=== PATIENT | female | born 1965 | race Caucasian/White ===

== ENCOUNTER 2018-09-17 07:19 | Observation (INO) ==
--- NOTE | 2018-09-17 07:22 | Emergency Department Note ---
Disposition Clinical Impression: Chest pain Qualifiers: Chest pain type: unspecified Qualified Code(s): R07.9 - Chest pain, unspecified Disposition: Admitted As Inpatient Condition: Fair Referrals: Joseph Torres DO [Primary Care Provider] - Forms: ED Satisfaction Letter Time of Disposition: 08:57 Chest Pain HPI - General Chief Complaint: ED Chest Pain Stated Complaint: Chest Pain Time Seen by Provider: 09/17/18 07:21 Source: patient, EMS Mode of arrival: EMS Limitations: no limitations Vital Signs Reviewed: Yes Nursing Notes Reviewed: Yes - History of Present Illness HPI Narrative: 52-year-old female who presents today with what she describes as "crushing" chest pain that radiated into her jaw today when she got to work. She states that she took to thrive energy pills this morning before work. She states that she is out of her metoprolol. She states she has had a heart attack before but did not have any angioplasty or stenting and it was taking care of with heparin. She states that since that time she has not had a repeat stress test or catheter and has been approximately 3 years since her last heart attack. She is a smoker. She states her cholesterol is always normal. She is a strong family history of cardiac disease. She states that she does not have diabetes. She states en route by EMS she received aspirin and nitroglycerin and an IV was started with some IV fluids, and she states her chest pain is now 1-2 from an 8. She states it felt similar to her previous heart attack and that is why she came in Pt complaint: chest pain - Related Data Home Medications Medication Instructions Recorded Confirmed Duloxetine HCl [Cymbalta] 90 mg PO DAILY 06/23/15 09/17/18 Metoprolol XL (24 HR) Succ [Toprol 25 mg PO DAILY 06/23/15 09/17/18 XL] Zolpidem [Ambien] 10 mg PO HS 06/23/15 09/17/18 clonazePAM [Klonopin] 1 mg PO DAILY 06/23/15 09/17/18 Quetiapine Fumarate [Seroquel] 25 mg PO HS 02/07/17 Aspirin 81 mg PO DAILY 09/17/18 09/17/18 Previous Rx's Medication Instructions Recorded Ibuprofen [Motrin] 800 mg PO Q8HR PRN #40 tablet 06/22/18 Allergies Allergy/AdvReac Type Severity Reaction Status Date / Time Sulfa (Sulfonamide Allergy Hives Verified 06/22/18 13:44 Antibiotics) Review of Systems: All other systems are negative except as noted/marked Chart generated with voice recognition software Nursing notes reviewed Old records reviewed Chest Pain PMH - Past Medical History Medical history: Reports: non-contributory Surgical history: Reports: non-contributory, hysterectomy Psychiatric history: Reports: anxiety, depression - Social History Smoking Status: Current every day smoker Alcohol use: Reports: none Drug use: Reports: none Physical Exam General: NAD, VSS Head: normocephalic, atraumatic Eyes: EOMI, PERRLA mouth: moist mucous membranes Neck: NO CLA, Supple Chest wall: normal rise, no crepitus, no deformity noted Lungs: moving air well, no distress Heart: RRR, Abd: soft, nontender, BS normal : deferred MSK: strength equal in all four extremities Ext: moves all four extremities, no obvious deformities Skin: cap refill normal, warm, dry neuro : CN2-12 grossly intact, A&Ox3 Psych: normal affect, not anxious Course - Reevaluation(s) Reevaluation #1: The case was turned over to me at change of shift. The labs came back showing a negative troponin and the twelve-lead EKG by my interpretation is completely normal and not indicative of ischemia. I went and talked with the patient. Sounds like her discomfort started about half hour to an hour prior to arrival to the emergency department. She says that her discomfort was pretty much gone when they did a 12-lead EKG so the fact that its normal does not really help us rule out ischemia as the cause of her discomfort. Furthermore the timing would indicate that we cannot rely on the single troponin to rule out ischemia either. The patient's heart score is 3. This due to the fact that her troponin is negative, her story is moderately suspicious, her EKG is normal, her age is 52, and she has 2 clear risk factors which include smoking and family history. Now she reports having had a heart attack a couple years ago but states that when she had the heart catheter there was only a blood clot there and they treated it with blood thinners and did not do any stenting. This does not sound like there is atherosclerotic disease but if we gave her that point as a risk factor that would put her heart pathway score at 4 which is a level of higher risk. Her discomfort certainly may have been triggered by drinking all the energy drinks this morning. But we have to be concerned about the heart. She is claiming that her discomfort is moving up from a 1 to a 3 at this point although she is not having any of the jaw discomfort. I will repeat an EKG now to see if there is any change. If there are dynamic changes on the EKG then she will need to be transferred to [facility]. If the EKG is normal, I still think we need to admit the patient to the hospital for serial enzymes given the heart score and the story and overall presentation. Cardiac discussed this with the patient and she agrees to the plan. We await the EKG. Time: 08:33 Reevaluation #2: Twelve-lead EKG performed at 8:34 AM ordered, reviewed and interpreted by ED physician shows sinus rhythm at a rate of 71. Normal axis. Good hour progression across precordium. No acute ischemic changes. Intervals are within normal limits. Time: 08:35 - Consultations Consultation #1: Dr. Armstrong, hospitalist - I discussed the case with the hospitalist. He is accepted patient for admission to the hospital provided a repeat troponin does not show any increase in troponin. I will order the repeat troponin for 945. I will be 2 hours after the initial. If it is negative and the patient will be admitted to the floor. Time: 08:53 Vital Signs Temperature 97.8 F 09/17/18 07:22 Pulse Rate 81 09/17/18 07:22 Respiratory Rate 18 09/17/18 07:22 Blood Pressure 130/78 09/17/18 07:22 O2 Sat by Pulse Oximetry 98 09/17/18 07:22 Temperature 97.8 F 09/17/18 07:22 Pulse Rate 72 09/17/18 08:13 Respiratory Rate 18 09/17/18 08:13 Blood Pressure 130/51 09/17/18 08:13 O2 Sat by Pulse Oximetry 100 09/17/18 08:13 Oxygen Delivery Oxygen Delivery Room Air Chest Pain - Medical Records Medical records reviewed: Yes I reviewed the patient's medical records. - Lab Data Lab results reviewed: Yes I reviewed the patient's lab results. Result diagrams: 09/17/18 07:45 09/17/18 07:45 Lab Results 11/05/2809/17/18 09/17/18 Range/Units 07:45 07:45 07:45 WBC 7.3 (4.3-11.1) K/mcL RBC 4.44 (3.82-4.97) M/mcL Hgb 13.4 (11.5-15.4) g/dL Hct 40.0 (35.3-44.9) % MCV 90.1 (83.0-100.0) fL MCH 30.2 (28.0-33.3) pg MCHC 33.5 (31.6-35.5) g/dL RDW 13.3 (11.5-14.5) % Plt Count 215 (140-400) K/mcL MPV 10.4 (9.4-12.4) fL Immature Gran % 0.3 (0-4) % Seg Neutrophils % 72.7 % Lymphocytes % 19.8 % Monocytes % 5.1 % Eosinophils % 1.7 % Basophils % 0.4 % Neutrophils # 5.3 (1.6-8.9) K/mcL Lymphocytes # 1.4 (0.6-4.6) K/mcL Monocytes # 0.4 (0.0-1.3) K/mcL Eosinophils # 0.1 (0.0-0.6) K/mcL Basophils # 0.0 (0.0-0.2) K/mcL PT 11.1 (9.4-12.1) Seconds INR 1.0 APTT 35.7 (26.0-36.0) Seconds Sodium 138 (136-145) mEq/L Potassium 3.8 (3.5-5.1) mEq/L Chloride 106 (98-107) mEq/L Carbon Dioxide 26 (23-29) mEq/L BUN 10 (6-20) mg/dL Creatinine 0.66 (0.60-1.20) mg/dL Est GFR ( Amer) > 60 (> 60) Est GFR (Non-Af Amer) > 60 (> 60) BUN/Creatinine Ratio 15 (6-26) Glucose 95 (70-105) mg/dL Calculated Osmolality 285 (280-300) Calcium 8.7 (8.6-10.3) mg/dL Troponin I < 0.03 (< 0.04) ng/mL Urine Color (Yellow) Urine Clarity (Clear) Urine pH (5.0-8.0) pH Units Ur Specific [place] (1.010-1.025) Urine Protein (Neg-Trace) mg/dL Urine Glucose (UA) (Normal) mg/dL Urine Ketones (Negative) mg/dL Urine Blood (Negative) Urine Nitrite (Negative) Urine Bilirubin (Negative) Urine Urobilinogen (Normal) mg/dL Ur Leukocyte Esterase (Negative) Urine Microscopic RBC (0-3) per hpf Urine Microscopic WBC (0-3) per hpf Ur Squamous Epith Cells (None-Few) per lpf Urine Bacteria (None-Few) per hpf Urine Mucus (Few) Ur Culture Indicated? (NO) Urine Opiates Screen (Zrgnnw=258) ng/mL Ur Oxycodone Screen (Cutoff= 100) ng/mL Ur Barbiturates Screen (Nqslgq=061) ng/mL Ur Phencyclidine Scrn (Cutoff=25) ng/mL Ur Amphetamines Screen (Ympkwk=4945) ng/mL U Benzodiazepines Scrn (Wqevka=426) ng/mL Urine Cocaine Screen (Cutoff= 300) ng/mL U Marijuana (THC) Screen (Cutoff = 50) ng/mL Ur Drug Screen Interp Ethyl Alcohol (Less than 10) mg/dL 09/17/18 09/17/18 09/17/18 Range/Units 07:45 08:08 08:08 WBC (4.3-11.1) K/mcL RBC (3.82-4.97) M/mcL Hgb (11.5-15.4) g/dL Hct (35.3-44.9) % MCV (83.0-100.0) fL MCH (28.0-33.3) pg MCHC (31.6-35.5) g/dL RDW (11.5-14.5) % Plt Count (140-400) K/mcL MPV (9.4-12.4) fL Immature Gran % (0-4) % Seg Neutrophils % % Lymphocytes % % Monocytes % % Eosinophils % % Basophils % % Neutrophils # (1.6-8.9) K/mcL Lymphocytes # (0.6-4.6) K/mcL Monocytes # (0.0-1.3) K/mcL Eosinophils # (0.0-0.6) K/mcL Basophils # (0.0-0.2) K/mcL PT (9.4-12.1) Seconds INR APTT (26.0-36.0) Seconds Sodium (136-145) mEq/L Potassium (3.5-5.1) mEq/L Chloride (98-107) mEq/L Carbon Dioxide (23-29) mEq/L BUN (6-20) mg/dL Creatinine (0.60-1.20) mg/dL Est GFR ( Amer) (> 60) Est GFR (Non-Af Amer) (> 60) BUN/Creatinine Ratio (6-26) Glucose (70-105) mg/dL Calculated Osmolality (280-300) Calcium (8.6-10.3) mg/dL Troponin I (< 0.04) ng/mL Urine Color Yellow (Yellow) Urine Clarity Clear (Clear) Urine pH 6.0 (5.0-8.0) pH Units Ur Specific [place] 1.020 (1.010-1.025) Urine Protein Negative (Neg-Trace) mg/dL Urine Glucose (UA) Normal (Normal) mg/dL Urine Ketones Negative (Negative) mg/dL Urine Blood Negative (Negative) Urine Nitrite Positive A (Negative) Urine Bilirubin Negative (Negative) Urine Urobilinogen Normal (Normal) mg/dL Ur Leukocyte Esterase Trace H (Negative) Urine Microscopic RBC 0-3 (0-3) per hpf Urine Microscopic WBC 3-5 H (0-3) per hpf Ur Squamous Epith Cells Few (None-Few) per lpf Urine Bacteria Many H (None-Few) per hpf Urine Mucus Few (Few) Ur Culture Indicated? YES A (NO) Urine Opiates Screen Negative (Axexwl=812) ng/mL Ur Oxycodone Screen Negative (Cutoff= 100) ng/mL Ur Barbiturates Screen Negative (Dsulgz=521) ng/mL Ur Phencyclidine Scrn Negative (Cutoff=25) ng/mL Ur Amphetamines Screen Negative (Iwgyii=3352) ng/mL U Benzodiazepines Scrn Negative (Clbjsy=743) ng/mL Urine Cocaine Screen Negative (Cutoff= 300) ng/mL U Marijuana (THC) Screen Negative (Cutoff = 50) ng/mL Ur Drug Screen Interp See Below Ethyl Alcohol < 10 (Less than 10) mg/dL - Radiology Data Radiology results reviewed: Yes I reviewed the patient's radiology results. EXAMINATION: SINGLE XRAY VIEW OF THE CHEST 09/17/2018 7:43 am COMPARISON: 06/07/2016. HISTORY: ORDERING SYSTEM PROVIDED HISTORY: chest pain with shortness of breath FINDINGS: The heart size is within normal limits. The pulmonary vasculature is also within normal limits. No acute infiltrates are seen. The costophrenic angles are sharp bilaterally. No pneumothoraces are noted. XR/XR chest 1V portable IMPRESSION: 1. No active pulmonary disease. D/ / Marcos Mccullough MD / Marcos Mccullough MD Interpreting Provider: Marcos Mccullough MD - EKG Data EKG attestation: Yes I reviewed and interpreted this EKG. EKG results narrative: EKG interpreted by myself as a sinus rhythm with a rate of 76 and QTc of [address] elevation EKG is improved when compared to EKG from 2015 Heart Score - Score History: Moderately Suspicious EKG: Normal Age: 45-65 Risk Factors: 1-2 risk factors Troponin: Less than normal limit HEART Score Total: 3 S.B.A.R. - José [email or web address] Situation: Demographics, MOA Background: Presenting Complaint, Relevant PMH, Meds, & Allergies Assessment: Vital Signs, Course and respsone to treatment, Exam Concerns, Patient/Family Expectation, Pertinant Lab Results, Outstanding Labs Recommendation: Barrier(s) to disposition, Recommendation based on pending studies, treatments, or consults S.B.A.REmelia Report Given to: Dr Ehsan Alexis Repor Time: 08:00
[2018-09-17] MEDS ORDERED: Nitroglycerin 0.4 MG TAB.SUBL SL ONE (07:25)
[2018-09-17 07:53] LABS: Basophils % 0.4 %; Eosinophils # 0.1 K/mcL (0.0-0.6); Eosinophils % 1.7 %; Hemoglobin 13.4 g/dL (11.5-15.4); Immature Granulocytes % 0.3 % (0-4); Lymphocytes # 1.4 K/mcL (0.6-4.6); Lymphocytes % 19.8 %; Mean Corpuscular HGB Conc 33.5 g/dL (31.6-35.5); Mean Corpuscular Hemoglobin 30.2 pg (28.0-33.3); Mean Corpuscular Volume 90.1 fL (83.0-100.0); Mean Platelet Volume 10.4 fL (9.4-12.4); Monocytes # 0.4 K/mcL (0.0-1.3); Monocytes % 5.1 %; Neutrophils # 5.3 K/mcL (1.6-8.9); Platelet Count 215 K/mcL (140-400); Red Blood Count 4.44 M/mcL (3.82-4.97); Red Cell Distribution Width 13.3 % (11.5-14.5); Segmented Neutrophils % 72.7 %
[2018-09-17 08:02] LABS: Prothrombin Time 11.1 Seconds (9.4-12.1)
[2018-09-17 08:04] LABS: Activated Partial Thrombo Time 35.7 Seconds (26.0-36.0)
[2018-09-17 08:12] LABS: Bilirubin,Urine Negative (Negative); Blood,Urine Negative (Negative); Clarity,Urine Clear (Clear); Color,Urine Yellow (Yellow); Glucose,Urine (UA) Normal (Normal); Ketones,Urine Negative (Negative); Leukocyte Esterase,Urine Trace (Negative); Nitrite,Urine Positive (Negative); Protein,Urine Negative (Neg-Trace); Urobilinogen,Urine Normal (Normal)
[2018-09-17 08:13] LABS: BUN/Creatinine Ratio 15 (6-26); Blood Urea Nitrogen 10 mg/dL (6-20); Calcium 8.7 mg/dL (8.6-10.3); Carbon Dioxide 26 mEq/L (23-29); Chloride 106 mEq/L (98-107); Glucose 95 mg/dL (70-105); Osmolality,Calculated 285 (280-300); Potassium 3.8 mEq/L (3.5-5.1); Sodium 138 mEq/L (136-145); Troponin I < 0.03 ng/mL (< 0.04); eGFR For Non-African Americans > 60 (> 60)
[2018-09-17 08:20] LABS: Bacteria,Urine Many per hpf (None-Few); Mucus,Urine Few (Few); RBC,Urine 0-3 per hpf (0-3); Squamous Epithelial Cell,Urine Few per lpf (None-Few)
[2018-09-17 08:22] LABS: Amphetamine Screen,Urine Negative ng/mL (Cutoff=1000); Barbiturate Screen,Urine Negative ng/mL (Cutoff=200); Benzodiazepines Screen,Urine Negative ng/mL (Cutoff=200); Cannabinoid Screen,Urine Negative ng/mL (Cutoff = 50); Cocaine Screen,Urine Negative ng/mL (Cutoff= 300); Opiate Screen,Urine Negative ng/mL (Cutoff=300); Phencyclidine Screen,Urine Negative ng/mL (Cutoff=25)
[2018-09-17] MEDS ORDERED: Naloxone 0.4 MG/ML INJ IVP PRN (10:24)
[2018-09-17] MEDS ORDERED: clonazePAM 1 MG TABLET PO SCH (10:24)
--- NOTE | 2018-09-17 12:29 | Internal Med History&Physical ---
Date of Encounter: 09/17/18 Time of Encounter: 11:25 Assessment and Plan (1) Chest pain Current visit: Yes Status: Acute Doubt myocardial ischemic origin from history and physical. Repeat cardiac enzymes were ordered through emergency room. Qualifiers: Chest pain type: unspecified Qualified Code(s): R07.9 - Chest pain, unspecified Internal Medicine - H&P: HPI Chief complaint: Chest discomfort Admitted From: Emergency Dept Plans for Post Hospital Care: Home History of present illness: Ms. Bettencourt is a 52 year old female who came to emergency room stating she had onset of chest discomfort approximately 0640 shortly after arriving at work. She stated she had been sitting at her desk for approximately 15 minutes after walking in from her car when she had gradual onset of discomfort in her chest that radiated to her jaw. She had sensation of nausea and warm diaphoresis but no vomiting. She states the pain intensity was 7-8/10 at the time. There was no significant dyspnea or cough. EMS was called and she was brought to emergency room. She was admitted to [facility] for ongoing care needs. She states she is pain-free at the present time. She denies previous similar pains even on significant exertion. Cardiovascular history is significant for IL 2014 followed by heart catheter. She was told she had a "clot" in the small posterior vessel that could not be stented. She was placed on metoprolol but states she has been out of it for 2 months. She has continued aspirin. She denies hypertension heart failure DVT or pulmonary embolus. Past Med Surg Social Fam HX - Past Medical History Medical history: myocardial infarction Additional medical history: IL in March 2015. Psychiatric history: anxiety, depression - Past Surgical History Surgical History: hysterectomy Additional surgical history: Tubal, expl. surgery for cycst - Social History Smoking Status: Current every day smoker Packs per day: 1 Smokeless Tobacco Status: No Alcohol use: occasionally Drug use: none Internal Medicine - H&P: Meds Duloxetine HCl [Cymbalta] 90 mg PO DAILY 06/23/15 [History] Metoprolol XL (24 HR) Succ [Toprol XL] 25 mg PO DAILY 06/23/15 [History] Zolpidem [Ambien] 10 mg PO HS 06/23/15 [History] clonazePAM [Klonopin] 1 mg PO DAILY 08/13/15 [History] Quetiapine Fumarate [Seroquel] 25 mg PO HS 02/07/17 [History] Ibuprofen [Motrin] 800 mg PO Q8HR PRN #40 tablet 06/22/18 [Rx] Aspirin 81 mg PO DAILY 09/17/18 [History] Allergy/AdvReac Type Severity Reaction Status Date / Time Sulfa (Sulfonamide Allergy Hives Verified 06/22/18 13:44 Antibiotics) All Systems PM: A 10-system review of systems was performed and is negative for pertinent f indings except as documented above in the HPI. Review of systems: Gen.: She states her weight has been stable the past few months Cardiovascular: As per history of present illness Respiratory: She smoked since age 17 up to one and half packs per day. She reports PFTs at work have not shown significant lung disease. She does not use home oxygen and has not been tested for sleep apnea. GI: She has GERD symptoms occasionally. She denies disorders of her liver gallbladder or exocrine pancreas : She denies hematuria dysuria or kidney stones Neurologic: She denies large distribution strokes or seizures. Endocrine: She denies diabetes thyroid disease or hyperlipidemia Hematology/oncology: She denies blood disorders cancers or anemia Psychiatric: She has anxiety and bipolar disorder. She follows [place] mental health provider Benji skeletal: She has occasional hand pain and neck pain. She denies gout or other bone joint or muscle disorders. - Constitutional Vitals: Temp Pulse Resp BP Pulse Ox 97.6 F 80 16 102/72 97 09/17/18 10:45 09/17/18 10:45 09/17/18 10:45 09/17/18 10:45 09/17/18 10:45 Exam: Gen.: She is a well-developed well-nourished female resting comfortably in bed who appears in no acute distress at present time HEENT: Head is atraumatic and normocephalic. Eyes: EOMI. There is no scleral icterus. Mouth: Mucosa is moist. Neck: Supple and nontender. There is no thyromegaly or adenopathy noted. Heart: Regular without murmurs gallops or ectopics Lungs: No wheezes or crackles are heard. Abdomen: Soft and nontender. No masses or guarding are noted. Extremities: There is no cyanosis edema or clubbing noted. Dorsalis pedis and posterior tibial pulses are trace to 1+ palpable bilaterally. Neurologic: Mental status: She is talkative and a good historian. Cranial nerves: Smile is symmetric. Forehead wrinkles bilaterally. Tongue protrudes midline. EOMI. Motor: There is no pronator drift. Cerebellar: Finger to nose is intact bilaterally. Skin: Warm and dry Internal Med - H&P Results - Labs CBC & Chem 7: 09/17/18 07:45 09/17/18 07:45 Labs: Short CBC 09/17/18 Range/Units 07:45 WBC 7.3 (4.3-11.1) K/mcL Hgb 13.4 (11.5-15.4) g/dL Hct 40.0 (35.3-44.9) % Plt Count 215 (140-400) K/mcL Neutrophils # 5.3 (1.6-8.9) K/mcL BMP 09/17/18 07:45 Sodium 138 Potassium 3.8 Chloride 106 Carbon Dioxide 26 BUN 10 Creatinine 0.66 Glucose 95 Calcium 8.7 Cardiac Enzymes 09/17/18 09/17/18 Range/Units 07:45 09:49 Troponin I < 0.03 < 0.03 (< 0.04) ng/mL Urine 09/17/18 Range/Units 08:08 Urine Color Yellow (Yellow) Urine Clarity Clear (Clear) Urine pH 6.0 (5.0-8.0) pH Units Ur Specific [place] 1.020 (1.010-1.025) Urine Protein Negative (Neg-Trace) mg/dL Urine Glucose (UA) Normal (Normal) mg/dL - Impressions ITS Impressions Chest X-Ray 09/17/18 07:26 IMPRESSION: 1. No active pulmonary disease. D/ / Marcos Mccullough MD / Marcos Mccullough MD Interpreting Provider: Marcos Mccullough MD
[2018-09-17] MEDS: Aspirin 81 MG TAB.CHEW PO SCH (13:10)
[2018-09-17] MEDS: clonazePAM 0.5 MG TABLET PO SCH (13:23)
[2018-09-17] MEDS: Metoprolol XL (24 HR) Succ 25 MG TAB.ER.24H PO SCH (13:23)
--- NOTE | 2018-09-17 16:18 | Electrocardiograph Report ---
[address] [address] Test Date: 2018-09-17 Pat Name: Marianna Bettencourt Department: [id number] Room: [facility] Gender: F Assisted Living Associate: Venu : 1965 Requested By: Krys Messina Order Number: [id number] Reading MD: Betito Dolan Measurements Intervals [place] Rate: 76 P: 69 MA: 139 QRS: 45 QRSD: 96 T: 58 QT: 392 QTc: 422 Interpretive Statements SINUS RHYTHM Electronically Signed On 09-17-2018 16:17:06 EST by Betito Dolan
--- NOTE | 2018-09-17 16:20 | Electrocardiograph Report ---
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
[2018-09-18] MEDS: Metoprolol XL (24 HR) Succ 25 MG TAB.ER.24H PO SCH (09:06)
[2018-09-18] MEDS: clonazePAM 0.5 MG TABLET PO SCH (09:06)
[2018-09-18] MEDS: Aspirin 81 MG TAB.CHEW PO SCH (09:07)
--- NOTE | 2018-09-18 10:06 | Discharge Summary ---
Orders not resulted at time of discharge: Pending orders 09/17/18 08:08 Culture,Urine [RM] Stat Date of Encounter: 09/18/18 Time of Encounter: 09:55 - Discharge Diagnosis (1) Chest pain Priority: Primary Status: Resolved Qualifiers: Chest pain type: unspecified Qualified Code(s): R07.9 - Chest pain, unspecified Hospital course: Ms. Bettencourt is a 52 year old female who came to emergency room stating she had onset of chest discomfort approximately 0640 shortly after arriving at work. She stated she had been sitting at her desk for approximately 15 minutes after walking in from her car when she had gradual onset of discomfort in her chest that radiated to her jaw. She had sensation of nausea and warm diaphoresis but no vomiting. She states the pain intensity was 7-8/10 at the time. There was no significant dyspnea or cough. EMS was called and she was brought to emergency room. She was admitted to [facility] for ongoing care needs. Initial orders were written by the emergency room physician. I saw her on September 17 and performed the history and physical. Repeat cardiac enzymes showed no evidence of myocardial damage. She remained pain-free after coming through emergency room. Etiology of her pain was not determined with certainty. She confided the morning of September 18 she had significant stress in her life. I told her severe stress can induce coronary spasm mimicking angina. She will discuss this further with her PCP and her synthetic staple extruder. On September 18 she felt stable for discharge home. She will follow with her PCP and synthetic staple extruder within and 1 week. She will restart Toprol-XL. She will be given a prescription for Nitrostat. I encouraged her to become a nonsmoker. - Time Spent with Patient Total time spent providing and/or coordinating discharge services: - Discharge Medications Prescriptions: Metoprolol XL (24 HR) Succ [Toprol Xl] 25 mg PO DAILY #30 tab.er.24h Nitroglycerin [Nitrostat] 0.4 mg SL Q5M PRN #1 vial PRN Reason: Chest Pain Home Medications: Duloxetine HCl [Cymbalta] 90 mg PO DAILY 06/23/15 [History] Metoprolol XL (24 HR) Succ [Toprol XL] 25 mg PO DAILY 06/23/15 [History] Zolpidem [Ambien] 10 mg PO HS 06/23/15 [History] clonazePAM [Klonopin] 1 mg PO DAILY 06/23/15 [History] Quetiapine Fumarate [Seroquel] 25 mg PO HS 02/07/17 [History] Ibuprofen [Motrin] 800 mg PO Q8HR PRN #40 tablet 06/22/18 [Rx] Aspirin 81 mg PO DAILY 09/17/18 [History] Metoprolol XL (24 HR) Succ [Toprol Xl] 25 mg PO DAILY #30 tab.er.24h 09/18/18 [Rx] Nitroglycerin [Nitrostat] 0.4 mg SL Q5M PRN #1 vial 09/18/18 [Rx] Allergies/Adverse Reactions: Allergy/AdvReac Type Severity Reaction Status Date / Time Sulfa (Sulfonamide Allergy Hives Verified 06/22/18 13:44 Antibiotics) Date of admission: 09/17/18 10:22 Primary care physician: Joseph Torres DO - Constitutional Vitals: Temp Pulse Resp BP Pulse Ox 97.7 F 72 16 104/62 96 09/18/18 09:28 09/18/18 09:28 09/18/18 09:28 09/18/18 09:28 09/18/18 09:28 - Patient Status Disposition: Home, Self-Care Condition: Fair - Discharge Instructions Follow Up With: Joseph Torres DO [Primary Care Provider] - 1 week Betito Dolan DO [Partnered Physician] - 1 week - Diet and Activity Activity: resume usual activities as tolerated Diet: advance to your usual diet
[2018-09-18 11:29] VITALS: BP 105/66
== END 2018-09-18 11:31 | disposition home or self-care (01) ==
LOC: EMEROOPIK 07:19 → INPPIK 07:19
PROVIDERS: ADMIT Internal Medicine; ATTEND Internal Medicine